=== PATIENT | female | born 2000 | race Caucasian/White ===

== ENCOUNTER 2022-06-01 17:56 | Emergency (ER) | payer SELFPAY ==
[~2022-06-01 17:56] MED LIST: Iopamidol-370 76% 500 ML 1 ML ONE
[2022-06-01 18:51] LABS: #Lymphocytes 0.6 thou/uL (1.20-3.40); #Monocytes 0.3 thou/uL (0.11-0.59); #Neutrophils 10.7 thou/uL (1.40-6.50); %Basophils 0.1 % (0.0-1.0); %Eosinophils 0.1 % (0.0-10.0); %Lymphocytes 4.9 % (28.0-48.0); %Monocytes 2.9 % (0.0-4.0); BHCG - Serum Negative (NEGATIVE); Hemoglobin 16.3 g/dL (12.0-16.0); Mean Corpuscular HGB CONC 34.7 g/dL (32.0-36.0); Mean Corpuscular Hemoglobin 31.4 pg (25.0-35.0); Mean Corpuscular Volume 90.5 fl (78.0-98.0); Mean Platelet Volume 9.9 fL (7.4-10.4); Platelet Count 197 10x3/uL (130-400); Pregs Control Background? CLEAR/WHITE (CLR/WHITE); Pregs Control Bar Appear? YES (CONTROL BAR); RBC Distribution Width 11.2 % (11.5-14.5); Red Blood Cell (RBC) Count 5.18 mill/uL (4.00-5.20); White Blood Cell (WBC) Count 11.6 10x3/uL (4.8-10.8)
[2022-06-01 19:03] LABS: ALT (SGPT) 23 U/L (8-55); AST (SGOT) 26 U/L (5-30); Albumin 5.1 g/dL (3.5-5.0); Alkaline Phosphatase 56 U/L (40-100); Anion Gap 18 mmol/L (10-20); BUN (Urea Nitrogen) 14 mg/dL (8.4-21.0); Calc. Creatinine Clearance 0 mL/min (70-130); Calcium 10.3 mg/dL (7.8-10.44); Carbon Dioxide 19 mmol/L (22-29); Chloride 105 mmol/L (98-107); Estimated GFR 114; Globulin 3.6 g/dL (2.4-3.5); Glucose 112 mg/dL (70-105); Lipase 17 U/L (8-78); Potassium 3.7 mmol/L (3.5-5.1); Protein, Total 8.7 g/dL (6.0-8.3); Sodium 138 mmol/L (136-145)
[2022-06-01] MEDS ORDERED: Ketorolac Tromethamine 30 MG/ML VIAL ONE (19:09)
[2022-06-01] MEDS ORDERED: Ondansetron PF 4 MG/2 ML Vial ONE ×2 (19:17→20:46)
== END 2022-06-01 22:11 | disposition home or self-care (01) ==
LOC: ERS 17:56
DX: K52.9 Noninfective gastroenteritis and colitis, unspecified (principal)
CPT/HCPCS: 71045; 74177; 80053; 83690; 84443; 84484; 84703; 85025; 85379; 93005; 96374; 96375; 96376; J1885; J2405; Q9967